=== PATIENT | male | born 1950 | race Caucasian/White ===

== ENCOUNTER → 2020-12-13 | Outpatient (REF) | payer MEDICARE ==
[2020-12-13 13:38] LABS: HEMATOCRIT 47.6 % (42.0-52.0); HEMOGLOBIN 15.6 g/dl (13.5-17.5); MEAN CORPUSCULAR HEMOGLOBIN 31.4 pg (27.0-33.0); MEAN CORPUSCULAR HGB CONC 32.8 g/dl (32.0-36.5); MEAN CORPUSCULAR VOLUME 95.8 fl (80.0-96.0); PLATELET COUNT, AUTOMATED 225 10^3/uL (150-450); RED BLOOD COUNT 4.97 10^6/uL (4.30-6.10)
[2020-12-13 14:15] LABS: ALT/SGPT 28 U/L (12-78); BILIRUBIN,TOTAL 0.6 MG/DL (0.2-1.0); BLOOD UREA NITROGEN 13 MG/DL (7-18); CALCIUM LEVEL 9.3 MG/DL (8.8-10.2); CARBON DIOXIDE LEVEL 31 MEQ/L (21-32); CHLORIDE LEVEL 103 MEQ/L (98-107); CHOLESTEROL LEVEL 236 MG/DL (<200); GLOMERULAR FILTRATION RATE > 60.0 (>49); GLUCOSE, FASTING 90 MG/DL (70-100); HDL CHOLESTEROL 54 MG/DL (>40); LDL CHOLESTEROL 152 MG/DL (<100); NON-HDL-C 182 MG/DL; POTASSIUM SERUM 5.2 MEQ/L (3.5-5.1); SODIUM LEVEL 138 MEQ/L (136-145); TOTAL PROTEIN 7.3 GM/DL (6.4-8.2); TRIGLYCERIDES LEVEL 149 MG/DL (<150)
== END ==
LOC: M SFHCADAM 11:32
PROVIDERS: ATTEND Physician Assistant
DX: Z00.00 Encounter for general adult medical examination without abnormal findings (principal); L40.50 Arthropathic psoriasis, unspecified

== ENCOUNTER → 2021-06-21 | Outpatient (REF) | payer MEDICARE | LOC: M SFHCADAM 15:25 | PROVIDERS: ATTEND Internal Medicine Infectious Disease | DX: L40.50 Arthropathic psoriasis, unspecified (principal); E78.2 Mixed hyperlipidemia; Z53.8 Procedure and treatment not carried out for other reasons ==

== ENCOUNTER → 2021-06-27 | Outpatient (REF) | payer MEDICARE ==
[2021-06-27 11:31] LABS: ALBUMIN 3.4 GM/DL (3.2-5.2); ALT/SGPT 28 U/L (12-78); BILIRUBIN,TOTAL 0.3 MG/DL (0.2-1.0); BLOOD UREA NITROGEN 12 MG/DL (7-18); CALCIUM LEVEL 8.6 MG/DL (8.8-10.2); CARBON DIOXIDE LEVEL 30 MEQ/L (21-32); CHLORIDE LEVEL 108 MEQ/L (98-107); CHOLESTEROL LEVEL 196 MG/DL (<200); CREATININE FOR GFR 0.92 MG/DL (0.70-1.30); GLOMERULAR FILTRATION RATE > 60.0 (>49); GLUCOSE, FASTING 90 MG/DL (70-100); HDL CHOLESTEROL 35 MG/DL (>40); LDL CHOLESTEROL 117 MG/DL (<100); NON-HDL-C 161 MG/DL; POTASSIUM SERUM 4.5 MEQ/L (3.5-5.1); SODIUM LEVEL 141 MEQ/L (136-145); TOTAL PROTEIN 6.5 GM/DL (6.4-8.2); TRIGLYCERIDES LEVEL 221 MG/DL (<150)
== END ==
LOC: M SFHCADAM 08:32
PROVIDERS: ATTEND Physician Assistant
DX: L40.50 Arthropathic psoriasis, unspecified (principal); E78.2 Mixed hyperlipidemia

== ENCOUNTER → 2025-09-28 | Outpatient (CLI) | payer MEDICARE ==
[~2025-09-28] MED LIST: AMLO1TAB24 PO; OXYC1TAB23 PO; THERTAB52 PO
[2025-09-28 14:12] LABS: CREATININE FOR GFR 0.78 MG/DL (0.70-1.30); GLOMERULAR FILTRATION RATE > 90.0 (>42)
== END ==
LOC: M LAB 12:12
PROVIDERS: ATTEND Surgery
DX: K43.9 Ventral hernia without obstruction or gangrene (principal)

== ENCOUNTER → 2025-09-30 | Outpatient (CLI) | payer MEDICARE ==
[~2025-09-30] MED LIST changes: +ISOVUE-370 76% 100 ML VIAL As Ordered ONE
== END ==
LOC: M RAD 15:38
PROVIDERS: ATTEND Surgery
DX: K43.9 Ventral hernia without obstruction or gangrene (principal)
CPT/HCPCS: 74177; Q9967